=== PATIENT | male | born 1995 | race Caucasian/White ===

== ENCOUNTER 2020-01-05 12:28 | Emergency (ER) | payer OTHER ==
[~2020-01-05] VITALS: Ht 170.2 cm; Wt 65.8 kg
[~2020-01-05 12:28] MED LIST: NORCO 5-325 TA1 EACH PO
[2020-01-05 14:15] VITALS: BP 100/60
== END 2020-01-05 14:15 | disposition home or self-care (01) ==
LOC: M.ERS 12:28
DX: S91.312A Laceration without foreign body, left foot, initial encounter (principal); Z90.49 Acquired absence of other specified parts of digestive tract; W25.XXXA Contact with sharp glass, initial encounter; Y92.89 Other specified places as the place of occurrence of the external cause; Y93.89 Activity, other specified; Y99.8 Other external cause status